=== PATIENT | male | born 1955 | race Caucasian/White ===

== ENCOUNTER 2022-08-28 18:10 | Emergency (ER) | payer OTHER, MEDICARE, SELFPAY ==
--- NOTE | 2022-08-28 18:12 | ECG_ITS ---
Measurements Intervals [place] Rate: 86 P: 14 [place]: 207 QRS: -27 QRSD: 98 T: 48 QT: 363 QTc: 435 Interpretive Statements SINUS RHYTHM BORDERLINE AV CONDUCTION DELAY INCOMPLETE RIGHT BUNDLE BRANCH BLOCK DELAYED PRECORDIAL R/S TRANSITION BASELINE WANDER- II, III, AVF, V3-V6 BORDERLINE ECG COMPARED TO ECG 02/02/2019 08:15:13 NO SIGNIFICANT CHANGES Electronically Signed On 08-29-2022 8:57:14 GAS PLANT TECHNICIAN by Rey Vinson D.O.
--- NOTE | 2022-08-28 18:25 | PC.NURSE ---
PT STATES THAT HE CAN'T WAIT ANY LONGER AND IS LEAVING. ADVISED TO RETURN IF RECONSIDERS. AMBULATORY FROM THE ED WITH A STEADY GAIT.
== END 2022-08-28 18:25 | disposition left against medical advice (07) ==
PROVIDERS: Emergency Provider Emergency Medicine; PCP Family Medicine Sports Medicine
DX: Z53.21 Procedure and treatment not carried out due to patient leaving prior to being seen by health care provider (principal)
CPT/HCPCS: 93005; 99199

== ENCOUNTER 2023-06-27 00:35 | Emergency (ER) | payer MEDICARE, OTHER, SELFPAY ==
[2023-06-27] VITALS (7 sets, daily range): BP systolic 130–157; BP diastolic 88–98; PULSE 60–80; RESP 16–20; TEMP 36.4; O2SAT 94–99
--- NOTE | ~2023-06-27 | CT_ITS ---
Clinical Indication: Chest pain, aortic graft CT Scan of the Chest with Contrast: Technique: Contiguous sections were acquired throughout the chest after intravenous administration of 100 cc of Omnipaque 350. Dose reduction technique was used on this scan by utilizing automated expos ure control and iterative reconstruction technique. The dose-length product (DLP) was 1245.20 mGy-cm. COMPARISON: 11/04/2018 Findings: There is no evidence of any significant mediastinal, hilar or axillary lymphadenopathy. No large cent ral pulmonary embolus seen. Evaluation for smaller, more peripheral pulmonary emboli is limited due t o streak artifact. There is no evidence of aortic dissection or aneurysm. There is no evidence of pleural or pericardial effusion. The lungs are clear. No pulmonary nodules or infiltrates are noted. Images through the upper abdomen reveal diffuse fatty infiltration of the liver.. Impression: No large central pulmonary embolus. Evaluate for smaller, more peripheral pulmonary emboli is limited . Clear lungs. Diffuse fatty infiltration of liver. Reviewed, dictated and finalized at location . Impression: No large central pulmonary embolus. Evaluate for smaller, more peripheral pulmo nary emboli is limited. Clear lungs. Diffuse fatty infiltration of liver.
--- NOTE | ~2023-06-27 | XR_ITS ---
Clinical Indication: Chest pain PA and lateral views of the chest: Comparison: 11/04/2018 Findings: The lungs are clear, without evidence of focal consolidation or pleural effusion. Cardiome diastinal silhouette is stable, status post interval median sternotomy. Bones and soft tissues are un remarkable. Impression: Clear lungs. Reviewed, dictated and finalized at location . Impression: Clear lungs.
--- NOTE | 2023-06-27 00:36 | ECG_ITS ---
Measurements Intervals [place] Rate: 71 P: [place]: 0 QRS: -29 QRSD: 99 T: 24 QT: 382 QTc: 416 Interpretive Statements SINUS RHYTHM ATRIAL PREMATURE COMPLEXES INCOMPLETE RIGHT BUNDLE BRANCH BLOCK BASELINE ARTIFACT- I, II, III, AVR, AVL, AVF, V1-V6 BORDERLINE ECG COMPARED TO ECG 08/28/2022 18:14:49 NO SIGNIFICANT CHANGES Electronically Signed On 06-27-2023 6:41:11 CDT by Rey Vinson D.O.
--- NOTE | 2023-06-27 00:58 | ED.CHESTPAIN ---
HPI - Chest Pain General Chief Complaint: Chest Pain Stated Complaint: chest pain Time Seen by Provider: 06/27/23 00:46 Source: patient Limitations: no limitations History of Present Illness HPI narrative: Patient is a 67-year-old male present to the emergency department complaining of chest pain. Patient notes the pain started 30 minutes ago, middle of his chest in addition to slightly on the right side, intermittent, stabbing in nature, last approximately 15 to 20 seconds at a time, unchanged into onset, has not tried anything for the pain outside of Gas-X which did not help, denies any history of pain in the past, pain does not radiate, has not noticed any association with exertion or deep inspiration, has not noticed anything making the pain better nor worse, notes that he was getting ready for bed when the pain started and overall was resting. Patient admits to history of an aortic repair in October [address] Juwan Xavier in [place] for which she now has a graft. Patient denies nausea, vomiting, diaphoresis, shortness of breath, cough, fever, abdominal pain, melena, hematochezia, difficulty urinating, constipation, numbness, weakness. Patient states that he is on Eliquis for atrial fibrillation and has been taking this as prescribed. Patient admits to seeing a transformation coach at [facility] on a regular basis and is unsure when his last echocardiogram was or cardiac catheterization. Patient denies history of coronary artery disease and denies any stents or CABG. Related Data Allergies Allergy/AdvReac Type Severity Reaction Status Date / Time No Known Allergies Allergy Verified 06/27/23 00:57 Review of Systems Review of Systems: A 10 system review of systems was completed on the patient and is negative except for what is stated in the HPI. Nursing and ancillary documentation was reviewed. PMFSH Comments At time of signature, I have reviewed and agree with nursing past medical, surgical, social and family history unless otherwise noted. Please see the nursing chart for further information. There is no relevant family history pertinent to the presenting complaint. Exam Narrative: CONST: No acute distress. Well nourished. HENMT: Head is normocephalic and atraumatic. Moist mucous membranes. No posterior oropharynx erythema. EYES: No conjunctival icterus, injection, or pallor. PERRL. NECK: No meningeal signs. No JVD. RESP: Able to speak in full sentences. Normal respiratory effort. CTAB. CARDIO: Regular rate. Regular rhythm. 2+ DP and radial pulses bilaterally. CHEST: Well-healed midline surgical scar overlying the sternum. GI: Nondistended. No tenderness to palpation. Soft. Negative rhoades's sign. : No CVA tenderness to palpation. SKIN: No rashes or lesions noted on exposed skin. NEURO: Oriented x3. Moves all extremities. EXTREM: No pedal edema. PSYCH: Normal affect. Course Vital Signs Vital signs: Vital Signs Temperature 97.6 F 06/27/23 00:48 Pulse Rate 72 06/27/23 00:48 Respiratory Rate 18 06/27/23 00:48 Blood Pressure 157/92 H 06/27/23 00:48 Pulse Oximetry 95 06/27/23 00:48 Oxygen Delivery Room Air 06/27/23 00:48 Temperature 97.6 F 06/27/23 00:48 Pulse Rate 80 06/27/23 06:15 Respiratory Rate 19 06/27/23 06:15 Blood Pressure 130/88 06/27/23 06:15 Pulse Oximetry 99 06/27/23 06:15 Oxygen Delivery Room Air 06/27/23 01:08 MDM - Chest Pain MDM Narrative Medical decision making narrative: Patient presents with the above complaint. Initial vitals are remarkable for no significant abnormalities aside from hypertension not in the emergency range. Physical examination as noted above. Plan discussed: laboratory analysis, EKG, CXR, CTA chest. Patient ordered morphine 4 mg IVP for pain control, ASA 324 mg for potential ACS. The etiology of the chest pain is uncertain. Cardiac risk factors, labs, EKG, and imaging were reviewed. I have a very low suspicion for tampon
[2023-06-27 01:16] LABS: Basophils Percent Auto 0.5 % (0.2-1.2); Eosinophils Absolute Auto 0.3 K/mm3 (0-0.3); Eosinophils Percent Auto 3.2 % (0-4.4); Hematocrit 48.6 % (42.0-52.0); Hemoglobin 16.7 g/dL (14.0-18.0); Immature Granulocyte Absolute 0.03 K/mm3 (0.00-0.031); Immature Granulocyte Percent A 0.4 % (0-0.5); Lymphocytes Absolute Auto 2.85 K/mm3 (0.9-3.2); Lymphocytes Percent Auto 35.1 % (18.3-44.2); Mean Corpuscular HGB Conc 34.4 g/dl (32-36); Mean Corpuscular Hemoglobin 34.5 pg (26-34); Mean Corpuscular Volume 100.4 fl (80-100); Mean Platelet Volume 9.5 fl (7.4-10.4); Monocytes Absolute Auto 0.7 K/mm3 (0.1-0.6); Monocytes Percent Auto 8.1 % (2.6-8.5); Neutrophils Absolute Auto 4.3 K/mm3 (1.3-6.7); Neutrophils Percent Auto 52.7 % (45.5-73.1); Platelet Count Result 224 k/mm3 (150-375); Red Blood Count 4.84 M/mm3 (4.6-6.20); Red Cell Distribution Width 12.9 % (11.5-14.5); White Blood Count 8.1 K/mm3 (4.5-10.0)
[2023-06-27] MEDS: ASPIRIN 81 MG CHEWABLE TABLET 324 MG PO (01:25)
[2023-06-27] MEDS: MORPHINE SULFATE (*CRX) 4 MG/ML INJ IV PUSH (01:26)
[2023-06-27 01:27] LABS: Alanine Aminotransferase 72 U/L (6-50); Albumin Level 4.7 g/dL (3.5-5.1); Alkaline Phosphatase 40 U/L (38-126); Anion Gap 11 mmol/L (8-16); Aspartate Amino Transferase 70 U/L (17-59); Bilirubin,Total 1.5 mg/dL (0.2-1.3); Blood Urea Nitrogen 14 mg/dL (9-20); Calcium 8.9 mg/dL (8.4-10.2); Carbon Dioxide 25 mmol/L (22-30); Chloride 99 mmol/L (98-107); Estimated CRCL calculation 96 ml/min; Estimated Glomerular Filt Rate > 60; Glucose 100 mg/dL (65-110); Lipase 104 U/L (23-300); Potassium 3.6 mmol/L (3.4-5.0); Sodium 135 mmol/L (137-145)
[2023-06-27 01:37] LABS: Troponin I < 0.012 ng/mL (0.000-0.034)
[2023-06-27 01:49] LABS: Magnesium 1.9 mg/dL (1.6-2.3)
[2023-06-27 01:51] LABS: INR 1.1; Partial Thromboplastin Time 32.5 SECONDS (22.3-36.8); Prothrombin Time 15.1 Seconds (11.1-14.7)
[2023-06-27 01:59] LABS: NT Pro B Type Natriuretic Pept 286 pg/mL (19.9-100)
[2023-06-27 03:05] LABS: Influenza A QL RT-PCR Negative (Negative); Influenza B QL RT-PCR Negative (Negative); SARS-CoV-2 RNA PCR Negative (Negative)
[2023-06-27 05:19] LABS: Troponin I < 0.012 ng/mL (0.000-0.034)
== END 2023-06-27 06:15 | disposition home or self-care (01) ==
PROVIDERS: Emergency Provider Student in an Organized Health Care Education/Training Program
DX: R07.89 Other chest pain (principal); K76.0 Fatty (change of) liver, not elsewhere classified; Z20.822 Contact with and (suspected) exposure to COVID-19; I48.91 Unspecified atrial fibrillation; Z79.01 Long term (current) use of anticoagulants; I49.1 Atrial premature depolarization; I45.10 Unspecified right bundle-branch block
CPT/HCPCS: 36415; 71046; 71275; 80053; 83690; 83735; 83880; 84484; 85025; 85610; 85730; 87636; 93005; 96374; 99284; A9270; J2270; Q9967

== ENCOUNTER 2023-11-13 09:34 | Outpatient (CLI) | payer MEDICARE, OTHER, SELFPAY ==
--- NOTE | ~2023-11-13 | CT_ITS ---
CT of the Abdomen and Pelvis: Indication: Abdominal pain Technique: 2.5 mm axial scans were obtained through the abdomen and pelvis following intravenous adm inistration of 100 cc of Omnipaque 350. Dose reduction technique was used on this scan by utilizing a utomated exposure control and iterative reconstruction technique. The dose-length product (DLP) was 1 710.74 mGy-cm. Findings: Scans through the lung bases are unremarkable. There is diffuse fatty infiltration of liver. Suspected tiny gallstones. The spleen, pancreas, adrena ls and kidneys are within normal limits. No evidence of aortic aneurysm. No lymphadenopathy. No bowel obstruction or bowel wall thickening. There is no evidence to suggest acute appendicitis. Sm all fat-containing umbilical hernia present. Images through the pelvis were performed. Urinary bladder unremarkable. No pelvic mass seen. No ascit es. Impression: No acute abnormality. Diffuse fatty infiltration of liver. Cholelithiasis. Small fat-containing umbilical hernia. Reviewed, dictated and finalized at location . RETREADER Impression: No acute abnormality. Diffuse fatty infiltration of liver. Cholelithiasis. Small fat-containing umbilical hernia.
[2023-11-13 10:05] LABS: Estimated Glomerular Filt Rate 55
== END 2023-11-13 09:35 | disposition home or self-care (01) ==
DX: K80.20 Calculus of gallbladder without cholecystitis without obstruction (principal); K42.9 Umbilical hernia without obstruction or gangrene; K76.0 Fatty (change of) liver, not elsewhere classified
CPT/HCPCS: 74177; Q9967

== ENCOUNTER 2023-12-19 07:13 | Emergency (ER) | payer MEDICARE, OTHER, SELFPAY ==
--- NOTE | ~2023-12-19 | XR_ITS ---
Clinical Indication: Chest pain PA and lateral views of the chest: Comparison: 06/27/2023 Findings: The lungs are clear, without evidence of focal consolidation or pleural effusion. Cardiome diastinal silhouette is stable. Bones and soft tissues are unremarkable. Impression: Clear lungs. Reviewed, dictated and finalized at location . Impression: Clear lungs.
--- NOTE | 2023-12-19 07:14 | ECG_ITS ---
Measurements Intervals [place] Rate: 65 P: 64 [place]: 223 QRS: -35 QRSD: 101 T: 55 QT: 414 QTc: 433 Interpretive Statements SINUS RHYTHM WITH FIRST DEGREE AV BLOCK VENTRICULAR PREMATURE COMPLEXES LEFT AXIS DEVIATION LOW QRS VOLTAGE IN PRECORDIAL LEADS INCOMPLETE RIGHT BUNDLE BRANCH BLOCK CONSIDER ANTERIOR INFARCT, AGE INDETERMINATE BASELINE ARTIFACT- II, III, AVL, V1-V2, V4-V6 ABNORMAL ECG COMPARED TO ECG 06/27/2023 00:42:18 FIRST DEGREE AV BLOCK NOW PRESENT LEFT-AXIS DEVIATION NOW PRESENT Electronically Signed On 12-19-2023 9:31:27 CDT by Rey Vinson D.O.
[2023-12-19 07:24] VITALS: BP 140/96; PULSE 64; RESP 16; TEMP 36.4; O2SAT 96
[2023-12-19] MEDS: ASPIRIN 81 MG CHEWABLE TABLET 324 MG PO (07:38)
[2023-12-19 07:43] VITALS: O2SAT 95
[2023-12-19 07:47] LABS: Alanine Aminotransferase 55 U/L (6-50); Albumin Level 4.3 g/dL (3.5-5.1); Alkaline Phosphatase 42 U/L (38-126); Anion Gap 8 mmol/L (8-16); Aspartate Amino Transferase 46 U/L (17-59); Bilirubin,Total 1.7 mg/dL (0.2-1.3); Blood Urea Nitrogen 19 mg/dL (9-20); Carbon Dioxide 24 mmol/L (22-30); Chloride 103 mmol/L (98-107); Estimated CRCL calculation 87 ml/min; Estimated Glomerular Filt Rate 60; Glucose 132 mg/dL (65-110); Lipase 95 U/L (23-300); Sodium 135 mmol/L (137-145)
[2023-12-19 07:49] LABS: Basophils Percent Auto 0.5 % (0.2-1.2); Eosinophils Absolute Auto 0.2 K/mm3 (0-0.3); Eosinophils Percent Auto 1.9 % (0-4.4); Hematocrit 44.7 % (42.0-52.0); Immature Granulocyte Absolute 0.02 K/mm3 (0.00-0.031); Immature Granulocyte Percent A 0.2 % (0-0.5); Lymphocytes Absolute Auto 1.93 K/mm3 (0.9-3.2); Lymphocytes Percent Auto 22.9 % (18.3-44.2); Mean Corpuscular HGB Conc 33.6 g/dl (32-36); Mean Corpuscular Hemoglobin 34.4 pg (26-34); Mean Corpuscular Volume 102.5 fl (80-100); Mean Platelet Volume 9.6 fl (7.4-10.4); Monocytes Absolute Auto 0.8 K/mm3 (0.1-0.6); Neutrophils Absolute Auto 5.5 K/mm3 (1.3-6.7); Neutrophils Percent Auto 65.5 % (45.5-73.1); Platelet Count Result 188 k/mm3 (150-375); Red Blood Count 4.36 M/mm3 (4.6-6.20); Red Cell Distribution Width 12.7 % (11.5-14.5); White Blood Count 8.4 K/mm3 (4.5-10.0)
[2023-12-19 07:57] LABS: INR 1.2
[2023-12-19 07:58] VITALS: PULSE 62; RESP 14
[2023-12-19 07:58] LABS: Partial Thromboplastin Time 34.4 Seconds (22.3-36.8)
[2023-12-19] MEDS: IPRATROPIUM 0.5 MG/ALBUTEROL SULFATE 2.5 MG AMPUL.NEB 3 ML INHALATION (07:58)
[2023-12-19 08:02] LABS: Troponin I < 0.012 ng/mL (0.000-0.034)
[2023-12-19 08:04] LABS: NT Pro B Type Natriuretic Pept 1040 pg/mL (19.9-100)
[2023-12-19 08:07] VITALS: PULSE 60; RESP 14
--- NOTE | 2023-12-19 10:24 | ED.GENADULT ---
HPI - General Adult General Chief complaint: Chest Pain Stated complaint: chest pain, sob Time Seen by Provider: 12/19/23 07:21 History of Present Illness HPI narrative: Patient is a 68-year-old male who presents ER with reports of shortness of breath and chest pain. Patient underwent cardioversion earlier this week at [facility]. He is currently anticoagulated. He has no history of coronary artery disease. Reports he was started on Lasix and his shortness of breath has been getting better but he feels slightly more dyspneic today. He has mild cough. No fevers or chills or sweats. He did have some brief sharp chest pain left side anteriorly without radiation and resolved on its own. Cough has been nonproductive. Related Data Allergies Allergy/AdvReac Type Severity Reaction Status Date / Time Sulfa (Sulfonamide Allergy Rash Verified 12/19/23 07:27 Antibiotics) warfarin Allergy Rash Verified 12/19/23 07:27 Review of Systems Review of Systems: All systems reviewed & are unremarkable except as noted in HPI and below Constitutional: Constitutional: Reports no additional constitutional complaints ENT: Reports system reviewed and no additional complaints, except as documented Cardiovascular: Cardiovascular: Reports chest pain, Denies rapid heart rate and Denies radiating jaw, neck or arm pain Respiratory: Respiratory: Reports cough, Reports dyspnea and Reports wheezing Gastrointestinal: Gastrointestinal: Reports no additional gastrointestinal complaints [facility] Past Medical History Medical History (Updated 12/19/23 @ 12:57 by Tim Vann MD) Anxiety Ascending aortic aneurysm Depression Diverticulosis Gout Hypercholesterolemia Hypertension Kidney stones Sleep apnea Surgical History Surgical History (Updated 12/19/23 @ 10:32 by Tim Vann MD) History of aortic aneurysm repair History of tonsillectomy Exam Narrative: GENERAL: Well-appearing, well-nourished, and in no acute distress. HEAD: Normocephalic, atraumatic. ENT: Mucous membranes moist. NECK: Supple. CHEST: Clear to auscultation but faint wheeze with coughing. No respiratory distress. HEART: Regular rate and rhythm. Normal peripheral pulses. ABDOMEN: Soft, nontender, nondistended. EXTREMITIES: Normal range of motion. 1+ edema. SKIN: Warm, dry, no rash. NEURO: Alert and oriented x3. PSYCH: Normal mood and affect. Course Course Emergency Course: Patient resting comfortably. Troponin negative x2. No evidence of volume overload. Wheezing improved with DuoNeb. Discharge home. Vital Signs Vital signs: Vital Signs Temperature 97.6 F 12/19/23 07:24 Pulse Rate 64 12/19/23 07:24 Respiratory Rate 16 12/19/23 07:24 Blood Pressure 140/96 H 12/19/23 07:24 Pulse Oximetry 96 12/19/23 07:24 Temperature 97.6 F 12/19/23 07:24 Pulse Rate 54 L 12/19/23 11:08 Respiratory Rate 16 12/19/23 11:08 Blood Pressure 128/76 12/19/23 11:08 Pulse Oximetry 95 12/19/23 11:08 Oxygen Delivery Room Air 12/19/23 07:43 Medical Decision Making Vital Signs Vital Signs: Vital Signs Temperature 97.6 F 12/19/23 07:24 Pulse Rate 64 12/19/23 07:24 Respiratory Rate 16 12/19/23 07:24 Blood Pressure 140/96 H 12/19/23 07:24 Pulse Oximetry 96 12/19/23 07:24 Temperature 97.6 F 12/19/23 07:24 Pulse Rate 54 L 12/19/23 11:08 Respiratory Rate 16 12/19/23 11:08 Blood Pressure 128/76 12/19/23 11:08 Pulse Oximetry 95 12/19/23 11:08 Oxygen Delivery Room Air 12/19/23 07:43 Lab Data 12/19/23 07:29 12/19/23 07:29 Labs: Lab Results 12/19/23 12/19/23 Range/Units 07:29 11:13 WBC 8.4 (4.5-10.0) K/mm3 RBC 4.36 L (4.6-6.20) M/mm3 Hgb 15.0 (14.0-18.0) g/dL Hct 44.7 (42.0-52.0) % MCV 102.5 H (80-100) fl MCH 34.4 H (26-34) pg MCHC 33.6 (32-36) g/dl RDW 12.7 (11.5-14.5) % Plt Count 188 (150-375) k/m
[2023-12-19 11:08] VITALS: BP 128/76; PULSE 54; RESP 16; O2SAT 95
--- NOTE | 2023-12-19 11:09 | ECG_ITS ---
Measurements Intervals [place] Rate: 53 P: 3 [place]: 210 QRS: -16 QRSD: 93 T: 33 QT: 449 QTc: 423 Interpretive Statements SINUS BRADYCARDIA WITH FIRST DEGREE AV BLOCK INCOMPLETE RIGHT BUNDLE BRANCH BLOCK LOW QRS VOLTAGE IN PRECORDIAL LEADS BORDERLINE ECG COMPARED TO ECG 12/19/2023 07:22:51 SINUS BRADYCARDIA NOW PRESENT Electronically Signed On 12-19-2023 11:19:31 CDT by Rey Vinson D.O.
[2023-12-19 11:41] LABS: Troponin I < 0.012 ng/mL (0.000-0.034)
[2023-12-19 13:12] VITALS: BP 129/85; PULSE 58; RESP 17; O2SAT 97
== END 2023-12-19 13:13 | disposition home or self-care (01) ==
PROVIDERS: Emergency Medicine; Emergency Provider Emergency Medicine; PCP Family Medicine
DX: R07.89 Other chest pain (principal); R06.2 Wheezing; E78.00 Pure hypercholesterolemia, unspecified; I10 Essential (primary) hypertension; G47.30 Sleep apnea, unspecified; Z87.442 Personal history of urinary calculi
CPT/HCPCS: 36415; 71046; 80053; 83690; 83880; 84484; 85025; 85610; 85730; 93005; 94640; 99284; A9270

== ENCOUNTER 2024-03-16 12:30 | Emergency (ER) | payer MEDICARE, OTHER, SELFPAY ==
--- NOTE | ~2024-03-16 | XR_ITS ---
EXAM: XR hip RT 2V w AP pelvis DATE: 03/16/2024 15:39 HISTORY: fall, pain . COMPARISON: None available. FINDINGS: Normal mineralization. Lumbar degenerative disc disease. Mild bilateral hip osteoarthritis . Moderate scattered pelvic enthesopathy. Bone island in the proximal left femur. IMPRESSION: No acute osseous finding in the pelvis or right hip. Reviewed, dictated and finalized at location K.
--- NOTE | ~2024-03-16 | XR_ITS ---
EXAM: XR knee LT 3V DATE: 03/16/2024 15:39 HISTORY: fall, pain . COMPARISON: None available. FINDINGS: Normal mineralization. No fracture or dislocation. No lytic or blastic lesion. Moderate le ft knee osteoarthritis. Quadriceps and patellar enthesopathy. No erosion or periosteal change. Soft t issues within normal limits. IMPRESSION: No acute osseous finding in the left knee. Reviewed, dictated and finalized at location K.
--- NOTE | ~2024-03-16 | CT_ITS ---
EXAMINATION: CT abd pelvis lumbar w con DATE: 03/16/2024 15:46 INDICATION: trauma TECHNIQUE: Computed tomography (CT) of the abdomen and pelvis and lumbar spine was performed with 100 mL Omnipaque-350 intravenous contrast. Automated exposure control and iterative reconstruction techn ique were employed. The dose-length product was 1650.99 mGy-cm. COMPARISON: 11/13/2023. FINDINGS: Abdomen/pelvis Lower thorax: Coronary artery and aortic valve calcification Liver: Normal. Biliary/Gallbladder: Cholelithiasis. No inflammatory changes No bile duct dilation. Pancreas: Mild fatty atrophy Spleen: Normal. Adrenals:No mass. Kidneys: No suspicious mass, obstructing stone, or hydronephrosis. Large bilateral simple renal cysts measuring up to 8.3 cm on the right and 6.6 cm on the left GI tract: No small or large bowel dilation. Normal appendix. Diverticulosis without diverticulitis. Mesentery/Peritoneum: No ascites, mass, or free air. Retroperitoneum: No mass. Atherosclerotic abdominal aortic and/or arterial calcifications. Pelvis: Pelvic organs are within normal limits. Soft Tissues: Small uncomplicated fat-containing umbilical and bilateral inguinal hernias. Bones: No acute osseous finding. Lumbar spine 5 nonrib-bearing lumbar-type vertebral bodies. Pedicles intact. Normal vertebral body alignment. Vert ebral body heights preserved. Multilevel degenerative disc disease and facet arthropathy. No severe c entral canal narrowing. Severe right L5-S1 neural foraminal narrowing secondary to degenerative de la o es. IMPRESSION: No acute process detected in the abdomen, pelvis, or lumbar spine. Reviewed, dictated and finalized at location K.
[2024-03-16 12:31] VITALS: BP 140/91; PULSE 64; RESP 20; TEMP 36.3; O2SAT 98
--- NOTE | 2024-03-16 12:58 | PC.NURSE ---
patient continues to stand next to the bed even after advising to remain seated. restless d/t pain
--- NOTE | 2024-03-16 13:02 | ED.FALL ---
HPI - Fall General Chief Complaint: Fall Stated Complaint: glf Time Seen by Provider: 03/16/24 12:59 History of Present Illness HPI Narrative: Patient is a 68-year-old male with history of AFib on Eliquis, chronic lower back pain with known lumbar disc disease here after a fall. Patient states that around 10 30 this morning he was getting up to feed his dogs and slipped on some dog urine falling down onto his lower back. He states he had significant difficulty getting up afterwards. He attempted to get in the shower with help of a friend but he was unable to due to his inability to get up over the wall of the bathtub to clean himself prior to coming into the hospital. He is currently complaining of lower back pain which is bilateral and in the middle of his lower back he additionally notes some right-sided hip pain and left-sided knee pain. The back and hip and knee pain are all worse with any movement. He did attempt to take 600 mg of ibuprofen and 1 Flexeril tablet prior to coming into the hospital with minimal help with his pain. He endorses some associated nausea due to the pain. He denies any numbness or weakness in his legs, no bowel or bladder incontinence, no saddle anesthesia. He denies head injury. Of note he does follow with a surgeon for his lower back in [place], they have offered him surgery in the past however he has been able to manage his pain decent well at home without surgical intervention up to this point. He notes prior to the fall he was feeling quite well. He did have a fall about 1 month ago hitting his left hip and had been seen in an outside emergency department, diagnosed with a deep muscle bruise and he has slowly returned to his normal self after that fall. Related Data Allergies Allergy/AdvReac Type Severity Reaction Status Date / Time Sulfa (Sulfonamide Allergy Rash Verified 12/19/23 07:27 Antibiotics) warfarin Allergy Rash Verified 12/19/23 07:27 Review of Systems Review of Systems: All systems reviewed & are unremarkable except as noted in HPI and below PMFSH Past Medical History Medical History (Updated 03/16/24 @ 16:46 by Alondra Kee MD) Anxiety Ascending aortic aneurysm Depression Diverticulosis Gout Hypercholesterolemia Hypertension Kidney stones Sleep apnea Surgical History Surgical History (Updated 12/19/23 @ 10:32 by Tim Vann MD) History of aortic aneurysm repair History of tonsillectomy Exam Narrative: GENERAL: Well-appearing, well-nourished, and in no acute distress. HEAD: Normocephalic, atraumatic. EYES: PERRLA and EOMI. ENT: Nares clear. Mucous membranes moist. NECK: Supple. No cervical spine tenderness. CHEST: Clear to auscultation. No chest wall tenderness. No respiratory distress. HEART: Regular rate and rhythm. Normal peripheral pulses. ABDOMEN: Soft, nontender, nondistended. EXTREMITIES: Reproducible midline tenderness around L1-L2. Bilateral paraspinal lumbar tenderness present. No obvious step-offs appreciated. He does have some reproducible tenderness on the right hip as well with normal range of motion. Left knee tenderness is appreciated with normal range of motion, no obvious bruising or large joint effusion. Strong DP pulses bilaterally. SKIN: Warm, dry, no rash. NEURO: No focal deficits. Alert and oriented x3. Course Course Emergency Course: Chart review performed. Patient here after a slip and fall on dog urine at home. 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 Triage vitals normal. Patient seen evaluated, does appear to be in pain. He has urinated without difficulty while here in the emergency department. He did have a traumatic injury. Will do CT lumbar spine as well as CT abdomen pelvis given the fact that he is on blood thinners to evaluate for possible retroperitoneal bleed. Will additionally do right hip and left knee films. Roger Hester, [place]
[2024-03-16] MEDS: HYDROmorphone HCL INJ (*CRX) 1 MG/ML SYR IV PUSH (14:09)
[2024-03-16] MEDS: ONDANSETRON INJ 4 MG/2 ML VIAL IV PUSH (14:10)
[2024-03-16] MEDS: diazePAM (*CRX) 5 MG TABLET 10 MG PO (14:18)
[2024-03-16 15:03] LABS: Basophils Percent Auto 0.2 % (0.2-1.2); Eosinophils Absolute Auto 0.2 K/mm3 (0-0.3); Eosinophils Percent Auto 1.7 % (0-4.4); Hematocrit 43.3 % (42.0-52.0); Hemoglobin 14.4 g/dL (14.0-18.0); Immature Granulocyte Absolute 0.04 K/mm3 (0.00-0.031); Immature Granulocyte Percent A 0.4 % (0-0.5); Lymphocytes Percent Auto 20.3 % (18.3-44.2); Mean Corpuscular HGB Conc 33.3 g/dl (32-36); Mean Corpuscular Hemoglobin 32.6 pg (26-34); Mean Platelet Volume 9.3 fl (7.4-10.4); Monocytes Absolute Auto 0.6 K/mm3 (0.1-0.6); Monocytes Percent Auto 6.9 % (2.6-8.5); Neutrophils Absolute Auto 6.6 K/mm3 (1.3-6.7); Neutrophils Percent Auto 70.5 % (45.5-73.1); Platelet Count Result 172 k/mm3 (150-375); Red Blood Count 4.42 M/mm3 (4.6-6.20); Red Cell Distribution Width 13.2 % (11.5-14.5); White Blood Count 9.3 K/mm3 (4.5-10.0)
[2024-03-16 15:30] LABS: Alanine Aminotransferase 28 U/L (6-50); Albumin Level 3.9 g/dL (3.5-5.1); Alkaline Phosphatase 43 U/L (38-126); Anion Gap 1 mmol/L (4-12); Aspartate Amino Transferase 29 U/L (17-59); Bilirubin,Total 1.7 mg/dL (0.2-1.3); Blood Urea Nitrogen 15 mg/dL (9-20); Calcium 8.7 mg/dL (8.4-10.2); Carbon Dioxide 30 mmol/L (22-30); Chloride 106 mmol/L (98-107); Estimated CRCL calculation 101 ml/min; Estimated Glomerular Filt Rate > 60; Glucose 102 mg/dL (65-110); Potassium 4.4 mmol/L (3.4-5.0); Sodium 137 mmol/L (137-145)
--- NOTE | 2024-03-16 16:07 | PC.NURSE ---
Pt resting with reg resp. States improvement with pain.
[2024-03-16 16:49] VITALS: BP 125/80; PULSE 80; RESP 18; TEMP 36.7; O2SAT 100
== END 2024-03-16 16:55 | disposition home or self-care (01) ==
PROVIDERS: Emergency Provider Student in an Organized Health Care Education/Training Program; PCP Family Medicine
DX: S39.92XA Unspecified injury of lower back, initial encounter (principal); I48.91 Unspecified atrial fibrillation; I10 Essential (primary) hypertension; E78.00 Pure hypercholesterolemia, unspecified; G47.30 Sleep apnea, unspecified; M10.9 Gout, unspecified; M51.36 Other intervertebral disc degeneration, lumbar region; Z79.01 Long term (current) use of anticoagulants; Z87.442 Personal history of urinary calculi; W01.0XXA Fall on same level from slipping, tripping and stumbling without subsequent striking against object, initial encounter
CPT/HCPCS: 36415; 72132; 73502; 73562; 74177; 80053; 85025; 96374; 96375; 99284; A9270; J1170; J2405; Q9967

== ENCOUNTER 2025-09-12 13:20 | Emergency (ER) | payer MEDICARE, OTHER, SELFPAY ==
--- OUTSIDE RECORDS SUMMARY | 2015-11-10 03:00 | XMS_ITS | Continuity of Care Document ---
Author Organization [facility] Address [address] [facility] [address] [place] [address] Phone Care Team Providers Care Level Vial Sealer Name Role Phone Fiorella OTR/L, CHT, Danica Unavailable Unavailable Procedures Procedure Date OT EVALUATION ORTHOTIC FITTING Hand Non-compressive stockinette per foot Nov OT EVALUATION THERAPEUTIC EXERCISES ORTHOTIC FITTING Hand Non-compressive stockinette per foot Nov Advance Directives Directive Yes / No Effective Date File Name No Information Encounters Encounter Description Practice Location Reason(s) For Visit Diagnoses Date Provider Providers Copied on Encounter [facility], [address] [place] [address], [id number], tel:[phone] [place] Pain in left handOther specified soft tissue disordersStiffn ess of left hand, not elsewhere classifiedUnil primary osteoarth of first carpometacarp joint, l handFinger-join t replacement of left handAftercare following joint replacement surgery [id number] Schwarz[address] Danica. [address] [facility], [address], [address], [place]. tel:[phone] [facility], [facility] [address], [id number], tel:[phone] [place] Pain in joint involving hand b-2 0-201 4 Schwarztrauber Danica. [address] [facility], [facility] [address], [place], [address], [place]. tel:[phone] Family History Family Member Type Diagnosis Age At Onset No Information Payers Payer name Insurance type Covered green party ID Son[facility] haq[facility]) [id number] Social History Type Description Quantity Date Captured Comments Sex Male Smoking Status No Information Chief Complaint And Reason For Visit No Information Reason For Referral Reason For Referral No Information History Of Present Illness Encounter Date Complaint History Of Prese nt Illness No Information Functional Status Date Functional Assessmen t No Information Instructions Date Instruction Additional Infor mation No Information Assessments Type Assessment Date No Information Patient Care Teams Name Effective Dates (start - stop) Status Members No Information
--- OUTSIDE RECORDS SUMMARY | 2016-01-05 18:00 | XMS_ITS | Continuity of Care Document ---
Author Organization [facility] Address [address] [place] [address] Phone Care Team Providers Care Automatic Screwmaker Name Role Phone Chantelle Silverman MD Unavailable Unavailable Medications Medication Instructions Dosage Dose Quantity Effective Dates (start - stop) Status Indication Fill Status Comments hydrochlorot hiazide 25 mg tablet take 1 tablet by oral route every day 20 MG 1 tablet - Active Lasix 20 mg tablet take 1 tablet by oral route every day 20 MG 1 tablet - Active trazodone 50 mg tablet take 1 tablet by oral route 2 times every day after meals 50 MG 1 tablet - Active Advance Directives Directive Yes / No Effective Date File Name No Information Encounters Encounter Description Practice Location Reason(s) For Visit Diagnoses Date Provider Encounter Disposition [facility], [address], [place], [place], [id number], tel:[phone] No Information Andra Lockhart. [address] [place] [address], [id number], . tel:[phone] Family History Family Member Type Diagnosis Age At Onset No Information Payers Payer name Insurance type Identifiers Authorization(s) Senior Living OPEN ACCESS I II III CI r ID: [id number] Name: Coverage Status Eligibility Check on: UnknownRelationship to Subscriber: selfPayer Address: [address], [place], [place], [address] Phone: Social History Type Description Quantity Date Captured Comments Sex Male Smoking Status No Information Current Gender Male (finding) Chief Complaint And Reason For Visit No Information History Of Present Illness Encounter Date Complaint History Of Prese nt Illness No Information Functional Status Date Description Comments No Information Instructions Date Instruction Additional Infor mation No Information Assessments Type Assessment Date No Information
--- NOTE | ~2025-09-12 | XR_ITS ---
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 Technique: 2 views obtained. Findings: Mild pulmonary venous congestion. No pneumothorax. Mild cardiomegaly. Mediastinal and hilar contours are within normal limits. Poststernotomy. Impression: Mild CHF Reviewed, dictated and finalized at location P. TRUCK MECHANIC Impression: Mild CHF
--- OUTSIDE RECORDS SUMMARY | 2025-09-12 13:26 | XMS_ITS | Patient Health Record ---
Author Organization [employer] Address [address] [facility] [address] [place] [id number] Care Team Providers Care Scientist Electronics Name Role Phone Ahsan Nunez MD Primary Care Provider Kip Concepcion [facility] [phone] Allergies Allergen (clinical drug ingredient) Drug/Non Drug Allergy documented on EMR Reaction Allergy Type Onset Date Status Substance with sulfonamide structure and antibacterial mechanism of action (substance) Sulfa Antibiotics rash Drug Allergy 11/01/2023 active Reason For Referral No Information Medications Medication SIG (Take, Route, Frequency, Duration) Notes Start Date End Date Status DULoxetine HCl Activ e buPROPion HCl Active Losartan Potassium 100 A ctive amLODIPine Besylate Active traZODone HCl Active OTC/Vitamins ASA, Dry Eye, Lottie, Fish Oil, Juice Plus Protein and Supplements Active Fluticasone Propionate Active Indomethacin Active Metoprolol Succinate Active Eliquis Active hydroCHLOROthiazide Active Rosuvastatin Calcium Active Pantoprazole Sodium 40 MG TAKE 1 TABLET BY MOUTH EVERY DAY orally daily; Duration: 90 days Active Spironolactone Activ e Social History Tobacco Use: Social History Observation Description Date Details (start date - stop date) Current Smoker NA - NA Tobacco Use/Smoking Question Answer Notes Are you a current every day smoker Problems Problem Type SNOMED Code ICD Code Onset Dates Problem Status W/U Status Risk Notes Problem Epprg-6-foknlripq in deficiency (34694868) 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 Problem Gastritis (1477107) Other gastritis without bleeding (K29.60) Active confirmed Problem Diverticular disease of colon (859971292) Diverticulosis of large intestine without perforation or abscess without bleeding (K57.30) Active confirmed Denzel has had a change in bowel habits over the past month from 1-2 soft formed bowel movement a day to up to 10 loose liquid stools a day associated with left-sided abdominal pain, cramping and nausea. He denies fever, chills, melena or hematochezia. Will further evaluate with bloodwork and stool studies. Depending on the results a warrant treatment. Problem Left upper quadrant pain (056069185) Left upper quadrant pain (R10.12) Active confirmed Problem History of polyp of colon (situation) (920802103) Personal history of colonic polyps (Z86.010) Active confirmed Denzel is currently having up to 10 loose liquid stools a day and denies melena or hematochezia. His last colonoscopy was in March 2021, findings were three small polyps removed from the transverse colon and diverticulosis in the sigmoid colon. Pathology confirmed tubular adenoma and he will repeat colonoscopy in 5 years for screening purposes. Problem Fatty liver (057778725) Fatty liver (K76.0) Active confirmed Problem History of polyp of colon (situation) (862655873) History of colon polyps (Z86.010) Active confirmed His last colonoscopy in March 2021 revealed 3 polyps and diverticulosis. He was advised to follow-up in 5 years. Problem Elevated liver enzymes level (759498843) Elevated liver enzymes (R74.8) Active confirmed He has chronically elevated liver enzymes and a history of fatty liver disease. He admits to alcohol abuse over the last 2 years and was drinking up to a fifth of alcohol daily. Liver enzymes in November showed an AST of 64 and an ALT of 63. He also has a known history of alpha-1 antitrypsin deficiency. Will have him obtain additional labs to rule out other autoimmune and metabolic causes, as well as a FibroScan. Problem Gastroesophageal reflux disease (disorder) (459466362) Chronic GERD (K21.9) Active confirmed His last upper endoscopy was in June 2020, findings were LA Grade A non-erosive esophagitis and erosive gastritis. He is asymptomatic on pantoprazole 40 mg daily. Problem Abdominal bloating (870130924) Abdominal bloating (R14.0) Active confirmed Problem Left lower quadrant pain (400648516) LLQ abdominal pain (R10.32) Active confirmed Problem Benign neoplasm of colon (56041431) Adenomatous polyp of transverse colon (D12.3) Active confirmed Problem Acute gastric ulcer without hemorrhage, without perforation AND without obstruction (63535413) Acute benign gastric ulcer (K25.3) Active confirmed Problem Atrial fibrillation (94091920) A-fib (I48.91) Active confirmed He was diagnosed with A-fib 2 months ago and had cardioversion and an ablation. He was started on Eliquis and is also taking an aspirin. Problem History of ulcer disease (Z87.898) Active confirmed Problem History of alcohol use disorder (situation) (5102301128) History of alcohol abuse (F10.11) Active confirmed Over the last 2 years he was drinking up to a fifth of alcohol per day. He has been abstinent from alcohol over the last 6 weeks. Encounters Encounter Location Date Provider Diagnosis [facility], [address] Perkins [address] [place] [id number] 08/17/2025 Kip Fay Plan Of Treatment Pending Test Test Name Order Date LACTOFERRIN, QN, STOOL 08/21/2022 Stool Culture 08/21/2022 Initiate SIBO 04/21/2019 Initiate SIBO 10/25/2023 CT Abdomen/Pelvis w/ IV & Oral Contrast 11/01/2023 ULTRASOUND LIVER 08/26/2022 Initiate Fibroscan 03/30/2024 Insurance Providers Payer Name Payer Address Payer Phone Subscriber Number Group Number Insured Name Patient Relationship to Insured Coverage Start Date Coverage End Date Medicare E2 [address] [address] [place] [phone] [id number] [phone] [id number] Denzel Santiago Self - patient is the insured [place] [employer] F [id number] [employer] [id number] Denzel Santiago Self - patient is the insured Medical (General) History Medical History History ICD Code Stomach Cancer Colon Polyps GERD Diverticulosis Ulcers Hypertension Pre-Diabetic Sleep Apnea Anxiety/Depression Alpha 1 Antitrypsin Deficiency Surgical History Surgery Date(Month/Year) Colonoscopy 03/2021 EGD 06/2020 AAA Repair Cervical Spine Vasectomy Tonsillectomy Deviated Septum Bilateral Thumb Surgery Left Knee Arthroscopy Hospitalization History Reason Date(Month/Year) [facility]: Upper Abdominal Pain 05/2018 Anxiety/Depression
--- OUTSIDE RECORDS SUMMARY | 2025-09-12 13:26 | XMS_ITS | Clinical Summary ---
Author Organization [facility] Address [address] 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 Gender Identity Not on file Sexual Orientation Not on file Plan of Treatment Health Maintenance Due Date Last Done Comments Hepatitis C Virus (HCV) Screening 1955 TdaP Immunization 1955 Cologuard 2001 Colonoscopy 2001 Colorectal Cancer Screening 2001 Immunochemical Fecal Occult Blood 2001 Pneumococcal Immunization (5 0+ years) (1 of 1 - PCV) 2006 Zoster Immunization (1 of 2) 2006 Influenza Immunization (#1) 2025 07/06/2020 SARS-COV-2 Immunization ( season) 2025 08/10/2021, 01/06/2021, 12/16/2020 Respiratory Syncytial Virus (RSV) Immunization (Adult) (1 - 1-dose 75+ series) 2031 Hepatitis B Immunization Aged Out No longer eligible based on patient's age to complete this topic Human Papillomavirus (HPV) Immunization Aged Out No longer eligible b ased on patient's age to complete this topic Meningococcal Immunization (ACWY) Aged Out No longer eligible b ased on patient's age to complete this topic Rotavirus Immunization Aged Out No lo nger eligible based on patient's age to complete this topic Care Teams Vaccinator Relationship Specialty Start Date End Date Ahsan Nunez MD [address] [place] [address] PCP - General Awnings Mechanic 11/11/18
--- OUTSIDE RECORDS SUMMARY | 2025-09-12 13:26 | XMS_ITS | Patient Health Record ---
Author Organization [facility] [employer] Address [address] [facility] [address] [place] [address] Care Team Providers Care Marketing Operations Consultant Name Role Phone Reagan Sims Unavailable [phone] Reason For Referral No Information Medications Medication SIG (Take, Route, Frequency, Duration) Notes Start Date End Date Status Losartan Potassium 100 MG Tablet Oral 12/10/2019 Active Rosuvastatin Calcium 10 MG Tablet Oral 12/10/2019 Active Pantoprazole Sodium 40 MG Tablet Delayed Release Oral 12/10/2019 Activ e Benzonatate 100 MG Capsule Oral 12/10/2019 Active traZODone HCl 100 MG Tablet Oral 12/10/2019 Active Metoprolol Tartrate 50 MG Tablet Oral 12/10/2019 Active Benzonatate 200 MG Capsule Oral 12/10/2019 Active hydroCHLOROthiazide 25 MG Tablet Oral 12/10/2019 Active Fluticasone Propionate Diskus 50 MCG/ACT Aerosol Powder Breath Activated Inhalation *Reorder from [email or web address] for eRx and Interaction Alerts* 12/10/2019 Active Social History Social History Additional Details Category Social Info Options Details Migrated Social History Migrated Social History Alcohol Intake: None 08/09/2020,Tobacco Years: Current every day smoker 08/09/2020,Smoking Status: 22 08/09/2020 Plan Of Treatment No Information Insurance Providers Payer Name Payer Address Payer Phone Subscriber Number Group Number Insured Name Patient Relationship to Insured Coverage Start Date Coverage End Date C[employer] [address] [place]CKAYLA SOLIS [phone] [id number] PATRICIA LOVE Self - patient is the insured Medical (General) History Surgical History Surgery Date(Month/Year) Heart surgery Neck spine disk surgery (74172) c3-4, c 4-5, c 5-6 03/18/2019
[2025-09-12 13:32] VITALS: BP 140/79; PULSE 69; RESP 12; TEMP 36.7; O2SAT 95
--- NOTE | 2025-09-12 13:36 | ED_ITS ---
HPI - SOB/Dyspnea General Chief Complaint: Upper Respiratory Infection Stated Complaint: shortness of breath Time Seen by Provider: 09/12/25 13:42 Mode of arrival: ambulatory Limitations: no limitations History of Present Illness HPI Narrative: 69-year-old male presents with approximately 3 day history of shortness of breath and wheezing. He reports occasional cough. He denies runny nose, stuffy nose, sore throat, fever, chills, body aches. Reports sweats which are not unusual. He reports history of AFib, he had an ablation and has a Watchman device. Denies chest pain. Reports history of bronchitis MD elicited complaint: shortness of breath Related Data Home Medications ?Medication ?Instructions ?Recorded ?Confirmed ?Last Taken ?Type bupropion HCl 300 mg 24 hr tablet, mg PO 09/12/25 Unk nown History extended release fluticasone propionate 50 intranasal 09/12/25 Unknown History mcg/actuation nasal spray,suspension furosemide 40 mg tablet mg 09/12/25 Unknown History losartan 100 mg tablet mg 09/12/25 Unknown History metoprolol succinate 100 mg mg PO 09/12/25 Unknown Hi story tablet,extended release 24 hr pantoprazole 40 mg tablet,delayed mg PO 09/12/25 Unkn own History release potassium chloride 10 mEq meq PO 09/12/25 Unknown His tory tablet,extended release rosuvastatin 20 mg tablet mg 09/12/25 Unknown History trazodone 100 mg tablet mg 09/12/25 Unknown History Allergies Allergy/AdvReac Type Severity Reaction Status Date / Time Sulfa (Sulfonamide Allergy Rash Verified 09/12/25 13:56 Antibiotics) warfarin Allergy Rash Verified 09/12/25 13:56 Review of Systems Review of Systems: CONSTITUTIONAL: Denies malaise, chills, or fever. EYES: Denies visual changes, redness, or discharge. ENT: Denies rhinorrhea, congestion, sinus pain, otalgia or sore throat. CARDIOVASCULAR: Denies chest pain, palpitations, or edema. MUSCULOSKELETAL: Denies myalgia. NEUROLOGIC: Denies headache. All systems reviewed & are unremarkable except as noted in HPI and below [facility] Past Medical History Medical History (Updated 09/12/25 @ 14:22 by Hannah Stiles APRN) Kidney stones Ascending aortic aneurysm Anxiety Depression Gout Diverticulosis Sleep apnea Hypertension Hypercholesterolemia Surgical History Surgical History (Updated 12/19/23 @ 10:32 by Tim Vann MD) History of aortic aneurysm repair History of tonsillectomy Comments At time of signature, agree with nursing past medical, surgical, social and family history. There is no relevant family history pertinent to the presenting complaint Exam Narrative: GENERAL: Nontoxic-appearing, well-nourished, and in no acute distress. HEAD: Normocephalic, atraumatic. EYES: PERRLA, sclera clear, and EOMI. ENT: Nares clear, no rhinorrhea or epistaxis. Mucous membranes moist. TM pearly bedoya with sharp light reflex bilaterally; no tragal tenderness. Oropharynx without erythema or lesions. Tonsils not enlarged and without exudate. NECK: Supple. CHEST: No respiratory distress. Scattered inspiratory wheeze. No bony deformities, no asymmetry. Speaks in full sentences. HEART: Regular rate and rhythm. No murmur heard. Normal peripheral pulses. SKIN: Warm, dry, no visible rash. NEURO: Alert and oriented x3. PSYCH: Normal mood and affect Course Course Emergency Course: Patient is aware of diagnosis, understands and agrees to treatment plan. Antic ipatory guidance given. Patient agrees to follow-up as directed and is aware of reasons to seek care at the emergency department. Portions of this record may have been created with voice recognition software Level of Care: Express Care Visit Reevaluation(s) Reevaluation #1: Lung sounds are clear after a albuterol nebulizer Date: 09/12/25 Time: 14:24 Vital Signs Vital signs: Vital Signs Temperature 98.1 F 09/12/25 13:32 Pulse Rate 69 09/12/25 13:32 Respiratory Rate 12 09/12/25 13:32 Blood Pressure 140/79 09/12/25 13:32 Pulse Oximetry 95 09/12/25 13:32 Oxygen Delivery Room Air 09/12/25 13:32 Temperature 98.1 F 09/12/25 13:32 Pulse Rate 69 09/12/25 13:32 Respiratory Rate 12 09/12/25 13:32 Blood Pressure 140/79 09/12/25 13:32 Pulse Oximetry 95 09/12/25 13:32 Oxygen Delivery Room Air 09/12/25 13:32 [facility] Narrative Medical decision making narrative: Patient has chronic medical conditions, his EKG is relatively unchanged from previous EKGs, his chest x-ray does not reveal any new conditions, does not show pneumonia. Patient responded favorably to albuterol, reports improvement in symptoms, lung sounds are clear to. I advised patient we can not do a comp rehensive workup at the urgent care, that would need to be done in the emergency room. Through shared decision making we decided to discharge him with a diagnosis of bronchitis, albuterol inhaler and prednisone. He understands reasons to go to the emergency room symptoms worsen or do not Differential Diagnosis Differential Diagnosis: I evaluated this patient in the [facility] care. History is obtained from patient who is an independent historian and physical exam was performed.? Available medical records were reviewed. ? Exam findings and relevant testing show no acute concerns or changes; patient is non-toxic appearing and is in no distress. ? Differential diagnosis and treatment plan were discussed with the patient. Patient agrees with discussion and after shared medical decision making agrees with plan of care. All questions were answered to the patient's satisfaction. Patient is appropriate for outpatient treatment and follow-up. Imaging Data My impression: Images reviewed, interpreted by radiologist, agree, see report. 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 Technique: 2 views obtained. Findings: Mild pulmonary venous congestion. No pneumothorax. Mild cardiomegaly. Mediastinal and hilar contours are within normal limits. Poststernotomy. Impression: Mild CHF ECG Data EKG #1: ECG completion date: 09/12/25 ECG completion time: 13:42 Prior ECG tracings: available for review (Relatively unchanged from previous EKG) Interpretation: Rate 66, [place] interval to 15, QRS duration 106, QT 396, left axis deviation, first-degree AV block. normal rate, sinus rhythm and RBBB Discharge Plan Discharge Clinical Impression: Bronchitis Patient Disposition: Home Condition: Stable Instructions: Acute Bronchitis (ED) Additional Instructions: Viral illness may last between 7-21 days; antibiotics do not cure viral illness and are NOT recommended at this time. Recommend antihistamine such as Benadryl at night time and Zyrtec or Isha during the day Use inhaler as needed for cough, wheezing, shortness of breath or chest tightness. Also, recommend symptomatic treatment includes: rest, fluids, and increase humidity of the air at home. Recommend Acetaminophen as directed on the bottle to reduce fever, pain, headache. Avoid smoking/second-hand smoke. Please schedule a follow-up visit with your personal physician for further evaluation and treatment within 3-5days. Including recheck and discussion of your blood pressure. If your symptoms persist, change or worsen significantly before you can contact your personal physician then please, without delay, go to the emergency department for further evaluation. Patient Language: Luxembourgish Prescriptions: New prednisone 20 mg tablet 40 mg PO DAILY 5 Days Qty: 10 0RF albuterol sulfate 90 mcg/actuation HFA aerosol inhaler 2 puff INHALATION QID PRN (Reason: shortness of breath or wheezing) Qty: 8.5 0RF No Action furosemide 40 mg tablet metoprolol succinate 100 mg tablet extended release 24 hr PO potassium chloride 10 mEq tablet extended release PO trazodone 100 mg tablet pantoprazole 40 mg tablet,delayed release (DR/EC) PO losartan 100 mg tablet fluticasone propionate 50 mcg/actuation spray,suspension INTRANASAL rosuvastatin 20 mg tablet bupropion HCl 300 mg tablet extended release 24 hr PO Follow-up/Referrals: Mayra,Ahsan Epps MD [Primary Care Provider, Unknown] Time of Disposition: 14:24
--- NOTE | 2025-09-12 13:48 | ECG_ITS ---
Test Date: 2025-09-12 13:42:43 Measurements Intervals [place] Rate: 66 P: -28 TN: 215 QRS: -37 QRSD: 106 T: 52 QT: 396 QTc: 417 Interpretive Statements SINUS RHYTHM WITH FIRST DEGREE AV BLOCK LEFT AXIS DEVIATION INCOMPLETE RIGHT BUNDLE BRANCH BLOCK INFERIOR INFARCT, AGE INDETERMINATE BASELINE ARTIFACT- I, II, III, AVR, AVL ,AVF, V1-V2, V4-V6 ABNORMAL ECG No previous ECG available for comparison Electronically Signed On 09-12-2025 19:18:16 INSIDE CHANNEL ACCOUNT MANAGER by Rey Vinson D.O.
[2025-09-12] MEDS: IPRATROPIUM 0.5 MG/ALBUTEROL SULFATE 2.5 MG (BASE) AMPUL.NEB 3 ML INHALATION (13:58)
[2025-09-12 14:24] VITALS: O2SAT 96
== END 2025-09-12 14:29 | disposition home or self-care (01) ==
PROVIDERS: Emergency Provider Nurse Practitioner; PCP Family Medicine
DX: J40 Bronchitis, not specified as acute or chronic (principal); I10 Essential (primary) hypertension; E78.00 Pure hypercholesterolemia, unspecified; M10.9 Gout, unspecified; F41.9 Anxiety disorder, unspecified; F32.A Depression, unspecified; I48.91 Unspecified atrial fibrillation
CPT/HCPCS: 71046; 93005; 94640; 99213; G0463